=== PATIENT | female | born 1960 | race Caucasian/White ===

== ENCOUNTER 2020-06-04 21:46 | Emergency (ER) | payer OTHER ==
--- NOTE | 2020-06-04 22:21 | EDM.PDOC ---
ED HPI GENERAL MEDICAL PROBLEM - General Chief Complaint: Lower Extremity Injury/Pain Stated Complaint: RECENT LT FOOT SURGERY, POSSIBLE INFECTION Time Seen by Provider: 06/04/20 21:48 Source of Information: Reports: Patient History Limitations: Reports: No Limitations - History of Present Illness INITIAL COMMENTS - FREE TEXT/NARRATIVE: 59-year-old female past medical history left foot bunion surgery 1 week ago presents for concern for infection. Patient this morning began to note redness, swelling, burning pain to the surgical site. She denies any fevers, nausea, vomiting. She has not been on antibiotics after the operation. L foot Pain Score (Numeric/FACES): 2 - Related Data Allergies Allergy/AdvReac Type Severity Reaction Status Date / Time No Known Allergies Allergy Verified 06/04/20 21:59 Home Meds: Home Meds cycloSPORINE [Restasis] 1 drop EYEBOTH ASDIRECTED PRN 02/23/16 [History] Clindamycin HCl 450 mg PO TID 10 Days #90 capsule 06/04/20 [Rx] Hydrocodone/Acetaminophen [Hydrocodone-Acetamin 5-325 mg] 1 tab PO Q6HR PRN 06/04/20 [History] Non-Formulary Medication [NF Drug] 06/04/20 [History] Omeprazole 20 mg PO DAILY 06/04/20 [History] Past Medical History Cardiovascular History: Reports: Other (See Below) Other Cardiovascular History: pearl valve prolapse Gastrointestinal History: Reports: Hemorrhoids, Other (See Below) Other Gastrointestinal History: occasional heartburn Genitourinary History: Reports: UTI, Recurrent [employer]ARR[employer] 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: Musculoskeletal History: Reports: Osteoarthritis Other Musculoskeletal History: L bunion sx Endocrine/Metabolic History: Reports: Obesity/BMI 30+ - Infectious Disease History Infectious Disease History: Reports: Chicken Pox - Past Surgical History Head Surgeries/Procedures: Reports: None GI Surgical History: Reports: Appendectomy Female Surgical History: Reports: Section, Hysterectomy, Salpingo-Oophorectomy, Tubal Ligation Social & Family History - Family History Family Medical History: No Pertinent Family History - Caffeine Use Caffeine Use: Reports: Tea - Recreational Drug Use Recreational Drug Use: No Review of Systems - Review of Systems Review Of Systems: Comprehensive ROS is negative, except as noted in HPI. ED EXAM, GENERAL - Physical Exam Exam: See Below Exam Limited By: No Limitations General Appearance: Alert, WD/WN, No Apparent Distress Throat/Mouth: Normal Voice, No Airway Compromise Head: Atraumatic, Normocephalic Neck: Normal Inspection Respiratory/Chest: No Respiratory Distress, No Accessory Muscle Use Cardiovascular: Normal Peripheral Pulses, Regular Rate, Rhythm Extremities: Other (erythema and swelling of L foot consistent with cellulitis) Psychiatric: Normal Affect, Normal Mood Skin Exam: Warm, Dry, Intact, Normal Color Course - Vital Signs Last Recorded V/S: Last Vital Signs Temp 97.8 F 06/04/20 22:02 Pulse 79 06/04/20 23:36 Resp 16 06/04/20 23:36 BP 111/53 L 06/04/20 23:36 Pulse Ox 98 06/04/20 23:36 - Orders/Labs/Meds Orders: Active Orders 24 hr Category Date Time Status Sodium Chloride 0.9% [Saline Flush] Med 06/04/20 22:25 Active 10 ml FLUSH ASDIRECTED PRN Sodium Chloride 0.9% [Saline Flush] Med 06/04/20 22:25 Active 2.5 ml FLUSH ASDIRECTED PRN Saline Lock Insert [OM.PC] Stat Oth 06/04/20 22:25 Ordered Medication Orders Sodium Chloride (Sodium Chloride 0.9% 10 Ml Syringe) 10 ml FLUSH ASDIRECTED PRN PRN Reason: Keep Vein Open Last Admin: 06/04/20 22:44 Dose: 10 ml Documented by: ANÍBAL Sodium Chloride (Sodium Chloride 0.9% 2.5 Ml Syringe) 2.5 ml FLUSH ASDIRECTED PRN PRN Reason: Keep Vein Open Last Admin: 06/04/20 22:44 Dose: 2.5 ml Documented by: ANÍBAL Labs: Laboratory Tests 06/04/20 06/04/20 Range/Units 22:10 22:10 WBC 8.73 (4.0-11.0) K/uL RBC 4.35 (4.30-5.90) M/uL Hgb 13.4 (12.0-16.0) g/dL Hct 40.7 (36.0-46.0) % MCV 93.6 (80.0-98.0) fL MCH 30.8 (27.0-32.0) pg MCHC 32.9 (31.0-37.0) g/dL RDW Std Deviation 42.8 (28.0-62.0) fl RDW Coeff of Ian 13 (11.0-15.0) % Plt Count 274 (150-400) K/uL MPV 10.60 (7.40-12.00) fL Neut % (Auto) 56.1 (48.0-80.0) % Lymph % (Auto) 36.1 (16.0-40.0) % [place] % (Auto) 6.0 (0.0-15.0) % Eos % (Auto) 1.6 (0.0-7.0) % Baso % (Auto) 0.2 (0.0-1.5) % Neut # (Auto) 4.9 (1.4-5.7) K/uL Lymph # (Auto) 3.2 H (0.6-2.4) K/uL [place] # (Auto) 0.5 (0.0-0.8) K/uL Eos # (Auto) 0.1 (0.0-0.7) K/uL Baso # (Auto) 0.0 (0.0-0.1) K/uL Nucleated RBC % 0.0 /100WBC Nucleated RBCs # 0 K/uL Sodium 143 (136-145) mmol/L Potassium 4.0 (3.5-5.1) mmol/L Chloride 105 (98-107) mmol/L Carbon Dioxide 29.5 (21.0-32.0) mmol/L BUN 21 H (7.0-18.0) mg/dL Creatinine 1.2 H (0.6-1.0) mg/dL Est Cr Clr Drug Dosing 48.42 mL/min Estimated GFR (MDRD) 46.3 ml/min Glucose 123 H (74-106) mg/dL Calcium 8.7 (8.5-10.1) mg/dL Total Bilirubin 0.2 (0.2-1.0) mg/dL AST 12 L (15-37) IU/L ALT 28 (14-63) IU/L Alkaline Phosphatase 69 (46-116) U/L Total Protein 7.2 (6.4-8.2) g/dL Albumin 3.3 L (3.4-5.0) g/dL Globulin 3.9 (2.6-4.0) g/dL Albumin/Globulin Ratio 0.9 (0.9-1.6) Meds: Medications Generic Name Dose Route Start Last Admin Trade Name Freq PRN Reason Stop Dose Admin Sodium Chloride 10 ml 06/04/20 22:25 06/04/20 22:44 Sodium Chloride 0.9% 10 Ml Syringe FLUSH 10 ml ASDIRECTED PRN Administration Keep Vein Open Sodium Chloride 2.5 ml 06/04/20 22:25 06/04/20 22:44 Sodium Chloride 0.9% 2.5 Ml Syringe FLUSH 2.5 ml ASDIRECTED PRN Administration Keep Vein Open Discontinued Medications Generic Name Dose Route Start Last Admin Trade Name Freq PRN Reason Stop Dose Admin Clindamycin Phosphate 600 mg/ 50 mls @ 100 mls/hr 06/04/20 22:25 06/04/20 22:42 Premix IV 06/04/20 22:54 100 mls/hr ONETIME ONE Administration - Re-Assessments/Exams Free Text/Narrative Re-Assessment/Exam: 06/04/20 22:36 We will get labs, will get x-ray to ensure no gas in soft tissue, will give 1 dose of clindamycin in emergency department. Anticipate discharge with p.o. antibiotics and close follow-up. 06/04/20 23:18 Labs are unremarkable. Waiting on x-ray results. Area of cellulitis has been marked with a skin marker. 06/04/20 23:52 X-ray imaging is unremarkable aside from soft tissue swelling consistent with cellulitis Will d/c with rx of clindamycin and patient instructed to return for worsening symptoms, systemic symptoms. Urged to call her surgeon for f/u sooner than scheduled appointment on 06/14. Departure - Departure Time of Disposition: 23:53 Disposition: Home, Self-Care 01 Condition: Good Clinical Impression: Soft tissue infection of foot - Discharge Information Prescriptions: Clindamycin HCl 450 mg PO TID 10 Days #90 capsule Instructions: Cellulitis, Adult Referrals: Angeles Ramirez NP [Primary Care Provider] - Forms: ED Department Discharge Additional Instructions: If the area of redness is spreading beyond the skin marker after 2 days or if you develop fever or worsening pain you should come back to the emergency department. You need to follow-up with the surgeon that did the surgery. Call them on Saturday and try to be seen early this week. The following information is given to patients seen in the emergency department who are being discharged to home. This information is to outline your options for follow-up care. We provide all patients seen in our emergency department with a follow-up referral. The need for follow-up, as well as the timing and circumstances, are variable depending upon the specifics of your emergency department visit. If you don't have a primary care physician on staff, we will provide you with a referral. We always advise you to contact your personal physician following an emergency department visit to inform them of the circumstance of the visit and for follow-up with them and/or the need for any referrals to a consulting specialist. The emergency department will also refer you to a specialist when appropriate. This referral assures that you have the opportunity for follow-up care with a specialist. All of these measure are taken in an effort to provide you with optimal care, which includes your follow-up. Under all circumstances we always encourage you to contact your private physician who remains a resource for coordinating your care. When calling for follow-up care, please make the office aware that this follow-up is from your recent emergency room visit. If for any reason you are refused follow-up, please contact the [facility] at and asked to speak to the emergency department charge nurse. Please follow up with your primary care physician. If you do not have a primary care physician, see below: [facility] [address] [place] [id number] [facility] [address] [place] [address] [facility] [address], [place] [address] Sepsis Event Note (ED) - Evaluation Sepsis Screening Result: No Definite Risk - Focused Exam Vital Signs: Vital Signs Temp Pulse Resp BP Pulse Ox 06/04/20 23:36 79 16 111/53 L 98 06/04/20 22:02 97.8 F 85 18 130/76 97 - My Orders Last 24 Hours: My Active Orders 06/04/20 22:25 Sodium Chloride 0.9% [Saline Flush] 10 ml FLUSH ASDIRECTED PRN Sodium Chloride 0.9% [Saline Flush] 2.5 ml FLUSH ASDIRECTED PRN Saline Lock Insert [OM.PC] Stat - Assessment/Plan Last 24 Hours: My Active Orders 06/04/20 22:25 Sodium Chloride 0.9% [Saline Flush] 10 ml FLUSH ASDIRECTED PRN Sodium Chloride 0.9% [Saline Flush] 2.5 ml FLUSH ASDIRECTED PRN Saline Lock Insert [OM.PC] Stat
[2020-06-04] MEDS ORDERED: Sodium Chloride 0.9% 2.5 ML Syringe FLUSH PRN (22:25)
[2020-06-04] MEDS ORDERED: Clindamycin Phosphate in D5W 600 MG in Premix Bag 1 BAG IV ONE ×2 (22:25)
[2020-06-04] MEDS ORDERED: Sodium Chloride 0.9% 10 ML Syringe FLUSH PRN (22:25)
[2020-06-04 23:04] LABS: CARBON DIOXIDE,CO2 29.5 mmol/L (21.0-32.0)
--- NOTE | 2020-06-04 23:44 | CR ---
Indication: Pain and swelling, rule out soft tissue gas Technique: Three views of the left foot Comparison: None Findings/Impression: Soft tissue edema involving the dorsal forefoot. No underlying subcutaneous emphysema. 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 Fixation hardware present in the 1st metatarsal and 1st proximal phalanx. No evidence of acute fracture or osseous erosion. Dictated by Chandler Engle MD @ Jun 04 2020 11:40PM Signed by Dr. Chandler Engle @ Jun 04 2020 11:43PM
[2020-06-04] MEDS ORDERED: Clindamycin HCl 150 MG Cap PO STA (23:55)
== END 2020-06-05 00:30 | disposition home or self-care (01) ==
LOC: MW.ED 21:46
DX: L08.9 Local infection of the skin and subcutaneous tissue, unspecified (principal); E66.9 Obesity, unspecified; Z68.30 Body mass index [BMI] 30.0-30.9, adult; Z98.890 Other specified postprocedural states; Z79.899 Other long term (current) drug therapy
CPT/HCPCS: 36415; 73630; 80053; 85025; 96365; 99284; A9270; J3490

== ENCOUNTER 2020-12-13 06:17 | Observation (INO) | payer OTHER ==
[2020-12-13] MEDS ORDERED: Nitroglycerin 0.4 MG Tab.SL SL ONE (06:51)
[2020-12-13] MEDS ORDERED: Alum Hydrox/Mag Hydrox/Simeth 15 ML, Lidocaine 2% 5 ML PO ONE ×2 (06:51)
[2020-12-13] MEDS ORDERED: Aspirin 81 MG Tab.Chew PO STA (06:51)
--- NOTE | 2020-12-13 06:58 | EDM.PDOC ---
ED HPI GENERAL MEDICAL PROBLEM - General Chief Complaint: Cardiovascular Problem Stated Complaint: CHEST PAIN Time Seen by Provider: 12/13/20 06:35 Source of Information: Reports: Patient - History of Present Illness INITIAL COMMENTS - FREE TEXT/NARRATIVE: 6:50am. Pt medical screening/stability exam prior to oncoming provider who will care for patient. Pt states here for chest pressure/tightness/burning. vital stable. EKG without stemi. initial orders placed. 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: Musculoskeletal History: Reports: Osteoarthritis Other Musculoskeletal History: L bunion sx Endocrine/Metabolic History: Reports: Obesity/BMI 30+ - Infectious Disease History Infectious Disease History: Reports: Chicken Pox - Past Surgical History Head Surgeries/Procedures: Reports: None GI Surgical History: Reports: Appendectomy Female Surgical History: Reports: Section, Hysterectomy, Salpingo- Oophorectomy, Tubal Ligation Social & Family History - Family History Family Medical History: No Pertinent Family History - Caffeine Use Caffeine Use: Reports: Tea ED ROS GENERAL - Review of Systems Review Of Systems: See Below ED EXAM, GENERAL - Physical Exam Exam: See Below Course - Vital Signs Last Recorded V/S: Last Vital Signs Temp 37.3 C 12/14/20 00:00 Pulse 83 12/14/20 00:00 Resp 19 12/14/20 00:00 BP 99/65 12/14/20 00:00 Pulse Ox 97 12/14/20 00:00 - Orders/Labs/Meds Orders: Medication Orders Acetaminophen (Acetaminophen 650 Mg Supp) 650 mg RECTAL Q4H PRN PRN Reason: Pain (mild 1-3) Last Admin: 12/13/20 21:07 Dose: 650 mg Documented by: Admin: 12/13/20 16:48 Dose: 650 mg Documented by: HERMRAC Ondansetron HCl (Ondansetron 4 Mg/2 Ml Sdv) 4 mg IVPUSH Q4H PRN PRN Reason: Nausea Cyclosporine [ (Restasis] 1 Each) 1 each EYEBOTH BID PRN PRN Reason: Dry Eyes Sodium Chloride (Sodium Chloride 0.9% 2.5 Ml Syringe) 2.5 ml FLUSH ASDIRECTED PRN PRN Reason: Keep Vein Open Sucralfate (Sucralfate Suspension 1 Gm/10 Ml Cup) 1 gm PO QIDACANDBED TRACY Last Admin: 12/13/20 21:02 Dose: 1 gm Documented by: Admin: 12/13/20 17:10 Dose: 1 gm Documented by: Admin: 12/13/20 12:31 Dose: 1 gm Documented by: INGRID Labs: Laboratory Tests 12/13/20 12/13/20 12/13/20 Range/Units 06:35 06:35 06:35 WBC 5.75 (4.0-11.0) K/uL RBC 4.60 (4.30-5.90) M/uL Hgb 14.2 (12.0-16.0) g/dL Hct 42.1 (36.0-46.0) % MCV 91.5 (80.0-98.0) fL MCH 30.9 (27.0-32.0) pg MCHC 33.7 (31.0-37.0) g/dL RDW Std Deviation 42.7 (28.0-62.0) fl RDW Coeff of Ian 13 (11.0-15.0) % Plt Count 190 (150-400) K/uL MPV 10.80 (7.40-12.00) fL Neut % (Auto) 71.6 (48.0-80.0) % Lymph % (Auto) 15.0 L (16.0-40.0) % [place] % (Auto) 12.3 (0.0-15.0) % Eos % (Auto) 0.9 (0.0-7.0) % Baso % (Auto) 0.2 (0.0-1.5) % Neut # (Auto) 4.1 (1.4-5.7) K/uL Lymph # (Auto) 0.9 (0.6-2.4) K/uL [place] # (Auto) 0.7 (0.0-0.8) K/uL Eos # (Auto) 0.1 (0.0-0.7) K/uL Baso # (Auto) 0.0 (0.0-0.1) K/uL Nucleated RBC % 0.0 /100WBC Nucleated RBCs # 0 K/uL Sodium 140 (136-145) mmol/L Potassium 4.1 (3.5-5.1) mmol/L Chloride 103 (98-107) mmol/L Carbon Dioxide 28.0 (21.0-32.0) mmol/L BUN 17 (7.0-18.0) mg/dL Creatinine 1.3 H (0.6-1.0) mg/dL Est Cr Clr Drug Dosing 44.16 mL/min Estimated GFR (MDRD) 42.1 ml/min Glucose 106 (74-106) mg/dL Hemoglobin A1c 5.8 (4.5 - 6.2) % Calcium 8.5 (8.5-10.1) mg/dL Total Bilirubin 0.3 (0.2-1.0) mg/dL AST 14 L (15-37) IU/L ALT 24 (14-63) IU/L Alkaline Phosphatase 79 (46-116) U/L Troponin I < 0.050 (0.000-0.056) ng/mL Total Protein 7.3 (6.4-8.2) g/dL Albumin 3.7 (3.4-5.0) g/dL Globulin 3.6 (2.6-4.0) g/dL Albumin/Globulin Ratio 1.0 (0.9-1.6) Triglycerides (0-200) mg/dL Cholesterol (50-200) mg/dL LDL Cholesterol, Calc (60-180) mg/dL VLDL Cholesterol (5-55) mg/dL HDL Cholesterol (40-60) mg/dL Cholesterol/HDL Ratio (3.3-6.0) TSH, Ultra Sensitive (0.36-3.74) uIU/mL SARS-CoV-2 RNA (JAJA) (NEGATIVE) 12/13/20 12/13/20 12/13/20 Range/Units 08:32 09:41 09:41 WBC (4.0-11.0) K/uL RBC (4.30-5.90) M/uL Hgb (12.0-16.0) g/dL Hct (36.0-46.0) % MCV (80.0-98.0) fL MCH (27.0-32.0) pg MCHC (31.0-37.0) g/dL RDW Std Deviation (28.0-62.0) fl RDW Coeff of Ian (11.0-15.0) % Plt Count (150-400) K/uL MPV (7.40-12.00) fL Neut % (Auto) (48.0-80.0) % Lymph % (Auto) (16.0-40.0) % [place] % (Auto) (0.0-15.0) % Eos % (Auto) (0.0-7.0) % Baso % (Auto) (0.0-1.5) % Neut # (Auto) (1.4-5.7) K/uL Lymph # (Auto) (0.6-2.4) K/uL [place] # (Auto) (0.0-0.8) K/uL Eos # (Auto) (0.0-0.7) K/uL Baso # (Auto) (0.0-0.1) K/uL Nucleated RBC % /100WBC Nucleated RBCs # K/uL Sodium (136-145) mmol/L Potassium (3.5-5.1) mmol/L Chloride (98-107) mmol/L Carbon Dioxide (21.0-32.0) mmol/L BUN (7.0-18.0) mg/dL Creatinine (0.6-1.0) mg/dL Est Cr Clr Drug Dosing mL/min Estimated GFR (MDRD) ml/min Glucose (74-106) mg/dL Hemoglobin A1c (4.5 - 6.2) % Calcium (8.5-10.1) mg/dL Total Bilirubin (0.2-1.0) mg/dL AST (15-37) IU/L ALT (14-63) IU/L Alkaline Phosphatase (46-116) U/L Troponin I < 0.050 (0.000-0.056) ng/mL Total Protein (6.4-8.2) g/dL Albumin (3.4-5.0) g/dL Globulin (2.6-4.0) g/dL Albumin/Globulin Ratio (0.9-1.6) Triglycerides 58 (0-200) mg/dL Cholesterol 119 (50-200) mg/dL LDL Cholesterol, Calc 51 L (60-180) mg/dL VLDL Cholesterol 11 (5-55) mg/dL HDL Cholesterol 56 (40-60) mg/dL Cholesterol/HDL Ratio 2.1 L (3.3-6.0) TSH, Ultra Sensitive 1.12 (0.36-3.74) uIU/mL SARS-CoV-2 RNA (JAJA) NEGATIVE (NEGATIVE) Meds: Medications Generic Name Dose Route Start Last Admin Trade Name Swathi PRN Reason Stop Dose Admin Acetaminophen 650 mg 12/13/20 12:00 12/13/20 21:07 Acetaminophen 650 Mg Supp RECTAL 650 mg Q4H PRN Administration Pain (mild 1-3) Ondansetron HCl 4 mg 12/13/20 12:00 Ondansetron 4 Mg/2 Ml Sdv IVPUSH Q4H PRN Nausea Cyclosporine [ 1 each 12/13/20 14:12 Restasis] 1 Each EYEBOTH BID PRN Dry Eyes Sodium Chloride 2.5 ml 12/13/20 12:00 Sodium Chloride 0.9% 2.5 Ml Syringe FLUSH ASDIRECTED PRN Keep Vein Open Sucralfate 1 gm 12/13/20 12:10 12/13/20 21:02 Sucralfate Suspension 1 Gm/10 Ml Cup PO 1 gm QIDACANDBED TRACY Administration Discontinued Medications Generic Name Dose Route Start Last Admin Trade Name Swathi PRN Reason Stop Dose Admin Acetaminophen 650 mg 12/13/20 11:12 12/13/20 11:15 Acetaminophen 325 Mg Tab PO 12/13/20 11:13 650 mg NOW ONE Administration Acetaminophen Confirm 12/13/20 11:14 12/13/20 11:18 Acetaminophen 325 Mg Tab Administered 12/13/20 11:15 Not Given Dose 650 mg .ROUTE .STK-MED ONE Aspirin 162 mg 12/13/20 06:51 12/13/20 07:00 Aspirin 81 Mg Tab.Chew PO 12/13/20 06:52 162 mg NOW STA Administration Al Hydroxide/Mg Hydroxide 15 0 ml 12/13/20 06:51 12/13/20 07:00 ml/ Lidocaine HCl 5 ml PO 12/13/20 06:52 20 each ONETIME ONE Administration Pantoprazole Sodium 40 mg/ 10 mls @ 300 mls/hr 12/13/20 12:10 12/13/20 12:32 Sodium Chloride IV 12/13/20 12:11 300 mls/hr NOW ONE Administration Nitroglycerin 0.4 mg 12/13/20 06:51 12/13/20 07:00 Nitroglycerin 0.4 Mg Tab.Sl SL 12/13/20 06:52 0.4 mg ONETIME ONE Administration Departure - Departure Time of Disposition: 00:00 Disposition: Refer to Observation Clinical Impression: Chest pain Sepsis Event Note (ED) - Evaluation Sepsis Screening Result: No Definite Risk
[2020-12-13 07:07] LABS: BLOOD UREA NITROGEN,BUN 17 mg/dL (7.0-18.0); CHLORIDE,CL 103 mmol/L (98-107); GLUCOSE RANDOM 106 mg/dL (74-106); POTASSIUM,K 4.1 mmol/L (3.5-5.1); SODIUM,NA 140 mmol/L (136-145)
--- NOTE | 2020-12-13 07:28 | EDM.PDOC ---
ED HPI GENERAL MEDICAL PROBLEM - General Chief Complaint: Cardiovascular Problem Stated Complaint: CHEST PAIN Time Seen by Provider: 12/13/20 07:11 Source of Information: Reports: Patient History Limitations: Reports: No Limitations - History of Present Illness INITIAL COMMENTS - FREE TEXT/NARRATIVE: Patient is a 60-year-old female with history of mitral valve prolapse presents today for left-sided chest pain. States the pain started last night has been currently Willy and not coming and going. It is not made the pain better or worse it does radiate to her back. She denies any cough fever chills but does have some slight shortness of breath. She denies any other symptoms. - Related Data Allergies Allergy/AdvReac Type Severity Reaction Status Date / Time No Known Allergies Allergy Verified 12/13/20 06:51 Home Meds: Home Meds cycloSPORINE [Restasis] 1 drop EYEBOTH ASDIRECTED PRN 02/23/16 [History] Clindamycin HCl 450 mg PO TID 10 Days #90 capsule 06/04/20 [Rx] Hydrocodone/Acetaminophen [Hydrocodone-Acetamin 5-325 mg] 1 tab PO Q6HR PRN 06/04/20 [History] Non-Formulary Medication [NF Drug] 06/04/20 [History] Omeprazole 20 mg PO DAILY 06/04/20 [History] Past Medical History Cardiovascular History: Reports: Other (See Below) Other Cardiovascular History: pearl valve prolapse Gastrointestinal History: Reports: Hemorrhoids, Other (See Below) Other Gastrointestinal History: occasional heartburn Genitourinary History: Reports: UTI, Recurrent 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: Musculoskeletal History: Reports: Osteoarthritis Other Musculoskeletal History: L bunion sx Endocrine/Metabolic History: Reports: Obesity/BMI 30+ - Infectious Disease History Infectious Disease History: Reports: Chicken Pox - Past Surgical History Head Surgeries/Procedures: Reports: None GI Surgical History: Reports: Appendectomy Female Surgical History: Reports: Section, Hysterectomy, Salpingo- Oophorectomy, Tubal Ligation Social & Family History - Family History Family Medical History: No Pertinent Family History - Tobacco Use Second Hand Smoke Exposure: No - Caffeine Use Caffeine Use: Reports: None - Recreational Drug Use Recreational Drug Use: No ED ROS GENERAL - Review of Systems Review Of Systems: See Below Constitutional: Reports: No Symptoms HEENT: Reports: No Symptoms Respiratory: Reports: No Symptoms Cardiovascular: Reports: Chest Pain Endocrine: Reports: No Symptoms GI/Abdominal: Reports: No Symptoms : Reports: No Symptoms Musculoskeletal: Reports: No Symptoms Skin: Reports: No Symptoms Neurological: Reports: No Symptoms Psychiatric: Reports: No Symptoms Hematologic/Lymphatic: Reports: No Symptoms Immunologic: Reports: No Symptoms ED EXAM, GENERAL - Physical Exam Exam: See Below Exam Limited By: No Limitations General Appearance: Alert, WD/WN, No Apparent Distress Eye Exam: Bilateral Eye: EOMI, PERRL Head: Atraumatic, Normocephalic Neck: Normal Inspection, Supple, Non-Tender Respiratory/Chest: No Respiratory Distress, Lungs Clear, Normal Breath Sounds Cardiovascular: Normal Peripheral Pulses, Regular Rate, Rhythm GI/Abdominal: Normal Bowel Sounds, Soft, Non-Tender Extremities: Normal Inspection Neurological: Alert, Oriented, CN II-XII Intact Course - Vital Signs Last Recorded V/S: Last Vital Signs Temp 98.1 F 12/13/20 10:19 Pulse 100 12/13/20 10:19 Resp 18 12/13/20 10:19 BP 120/70 12/13/20 10:19 Pulse Ox 98 12/13/20 10:19 - Orders/Labs/Meds Orders: Active Orders 24 hr Category Date Time Status Patient Status [ADT] Routine ADT 12/13/20 10:49 Ordered Labs: Laboratory Tests 12/13/20 12/13/20 12/13/20 Range/Units 06:35 06:35 08:32 WBC 5.75 (4.0-11.0) K/uL RBC 4.60 (4.30-5.90) M/uL Hgb 14.2 (12.0-16.0) g/dL Hct 42.1 (36.0-46.0) % MCV 91.5 (80.0-98.0) fL MCH 30.9 (27.0-32.0) pg MCHC 33.7 (31.0-37.0) g/dL RDW Std Deviation 42.7 (28.0-62.0) fl RDW Coeff of Ian 13 (11.0-15.0) % Plt Count 190 (150-400) K/uL MPV 10.80 (7.40-12.00) fL Neut % (Auto) 71.6 (48.0-80.0) % Lymph % (Auto) 15.0 L (16.0-40.0) % [place] % (Auto) 12.3 (0.0-15.0) % Eos % (Auto) 0.9 (0.0-7.0) % Baso % (Auto) 0.2 (0.0-1.5) % Neut # (Auto) 4.1 (1.4-5.7) K/uL Lymph # (Auto) 0.9 (0.6-2.4) K/uL [place] # (Auto) 0.7 (0.0-0.8) K/uL Eos # (Auto) 0.1 (0.0-0.7) K/uL Baso # (Auto) 0.0 (0.0-0.1) K/uL Nucleated RBC % 0.0 /100WBC Nucleated RBCs # 0 K/uL Sodium 140 (136-145) mmol/L Potassium 4.1 (3.5-5.1) mmol/L Chloride 103 (98-107) mmol/L Carbon Dioxide 28.0 (21.0-32.0) mmol/L BUN 17 (7.0-18.0) mg/dL Creatinine 1.3 H (0.6-1.0) mg/dL Est Cr Clr Drug Dosing 44.16 mL/min Estimated GFR (MDRD) 42.1 ml/min Glucose 106 (74-106) mg/dL Calcium 8.5 (8.5-10.1) mg/dL Total Bilirubin 0.3 (0.2-1.0) mg/dL AST 14 L (15-37) IU/L ALT 24 (14-63) IU/L Alkaline Phosphatase 79 (46-116) U/L Troponin I < 0.050 (0.000-0.056) ng/mL Total Protein 7.3 (6.4-8.2) g/dL Albumin 3.7 (3.4-5.0) g/dL Globulin 3.6 (2.6-4.0) g/dL Albumin/Globulin Ratio 1.0 (0.9-1.6) SARS-CoV-2 RNA (JAJA) NEGATIVE (NEGATIVE) 12/13/20 Range/Units 09:41 WBC (4.0-11.0) K/uL RBC (4.30-5.90) M/uL Hgb (12.0-16.0) g/dL Hct (36.0-46.0) % MCV (80.0-98.0) fL MCH (27.0-32.0) pg MCHC (31.0-37.0) g/dL RDW Std Deviation (28.0-62.0) fl RDW Coeff of Ian (11.0-15.0) % Plt Count (150-400) K/uL MPV (7.40-12.00) fL Neut % (Auto) (48.0-80.0) % Lymph % (Auto) (16.0-40.0) % [place] % (Auto) (0.0-15.0) % Eos % (Auto) (0.0-7.0) % Baso % (Auto) (0.0-1.5) % Neut # (Auto) (1.4-5.7) K/uL Lymph # (Auto) (0.6-2.4) K/uL [place]ham # (Auto) (0.0-0.8) K/uL Eos # (Auto) (0.0-0.7) K/uL Baso # (Auto) (0.0-0.1) K/uL Nucleated RBC % /100WBC Nucleated RBCs # K/uL Sodium (136-145) mmol/L Potassium (3.5-5.1) mmol/L Chloride (98-107) mmol/L Carbon Dioxide (21.0-32.0) mmol/L BUN (7.0-18.0) mg/dL Creatinine (0.6-1.0) mg/dL Est Cr Clr Drug Dosing mL/min Estimated GFR (MDRD) ml/min Glucose (74-106) mg/dL Calcium (8.5-10.1) mg/dL Total Bilirubin (0.2-1.0) mg/dL AST (15-37) IU/L ALT (14-63) IU/L Alkaline Phosphatase (46-116) U/L Troponin I < 0.050 (0.000-0.056) ng/mL Total Protein (6.4-8.2) g/dL Albumin (3.4-5.0) g/dL Globulin (2.6-4.0) g/dL Albumin/Globulin Ratio (0.9-1.6) SARS-CoV-2 RNA (JAJA) (NEGATIVE) Meds: Medications Discontinued Medications Generic Name Dose Route Start Last Admin Trade Name Swathi PRN Reason Stop Dose Admin Aspirin 162 mg 12/13/20 06:51 12/13/20 07:00 Aspirin 81 Mg Tab.Chew PO 12/13/20 06:52 162 mg NOW STA Administration Al Hydroxide/Mg Hydroxide 15 0 ml 12/13/20 06:51 12/13/20 07:00 ml/ Lidocaine HCl 5 ml PO 12/13/20 06:52 20 each ONETIME ONE Administration Nitroglycerin 0.4 mg 12/13/20 06:51 12/13/20 07:00 Nitroglycerin 0.4 Mg Tab.Sl SL 12/13/20 06:52 0.4 mg ONETIME ONE Administration - Re-Assessments/Exams Free Text/Narrative Re-Assessment/Exam: 12/13/20 10:50 Patient tropes negative x2. Patient will be admitted to the hospital for trending troponins. Departure - Departure Time of Disposition: 10:50 Disposition: Refer to Observation Condition: Good Clinical Impression: Chest pain Referrals: PCP,None [Primary Care Provider] - Forms: ED Department Discharge Sepsis Event Note (ED) - Evaluation Sepsis Screening Result: No Definite Risk - Focused Exam Vital Signs: Vital Signs Temp Pulse Resp BP BP Pulse Ox 12/13/20 10:19 98.1 F 100 18 120/70 98 12/13/20 09:48 91 18 110/57 L 97 12/13/20 08:49 90 18 124/74 98 12/13/20 08:20 92 18 113/64 98 12/13/20 07:55 88 18 118/73 98 12/13/20 07:23 98.2 F 94 18 111/65 98 12/13/20 07:00 143/96 H 12/13/20 06:48 97 F 101 H 20 131/71 99 - My Orders Last 24 Hours: My Active Orders 12/13/20 10:49 Patient Status [ADT] Routine - Assessment/Plan Last 24 Hours: My Active Orders 12/13/20 10:49 Patient Status [ADT] Routine Plan: Patient is a 60-year-old female who presents today for left-sided chest pain. Patient has a heart score of two. Will obtain two sets and likely discharge follow-up with cardiology as outpatient.
--- NOTE | 2020-12-13 07:49 | CR ---
INDICATION: Chest pain. TECHNIQUE: Chest 1 view. COMPARISON: None. FINDINGS: No focal consolidation, pleural effusion, or pneumothorax. There are two small tubular densities in the right lower lung. Mild left basilar atelectasis. Normal heart size and pulmonary vascularity. The bones are unremarkable. IMPRESSION: 1. No acute cardiopulmonary findings. 2. Two small tubular densities in the right lower lung could possibly represent calcified pleural plaques but are indeterminate. These could be further evaluated with CT of the chest. Dictated by Susie Alex MD @ 12/13/2020 7:48:21 AM (Electronically Signed)
[2020-12-13] MEDS ORDERED: Acetaminophen 325 MG Tab PO ONE (11:12)
[2020-12-13] MEDS ORDERED: Acetaminophen 325 MG Tab ONE (11:14)
[2020-12-13] MEDS ORDERED: Ondansetron 4 MG/2 ML SDV IVPUSH PRN (12:00)
[2020-12-13] MEDS ORDERED: Sodium Chloride 0.9% 2.5 ML Syringe FLUSH PRN (12:00)
[2020-12-13] MEDS ORDERED: Pantoprazole 40 MG in Sodium Chloride 0.9% 10 ML IV ONE (12:10)
--- NOTE | 2020-12-13 12:20 | PCM.HP.2 ---
<Esme Marshall M - Last Filed: 12/13/20 14:05> H&P History of Present Illness - General Date of Service: 12/13/20 Admit Problem/Dx: Admission Diagnosis/Problem Admission Diagnosis/Problem Chest pain Source of Information: Patient History Limitations: Reports: No Limitations - History of Present Illness Initial Comments - Free Text/Narative: This 60-year-old female with past medical history of mitral valve prolapse and Sjogren's presented to the ER with complaints of left-sided chest pain that is burning in nature and extends up to her throat. She reports that she feels this may be related to her gastric ulcer in which she takes omeprazole for. She was concerned enough though to be evaluated in the ER. She denies any associated symptoms such as nausea vomiting radiation of the pain diaphoresis or shortness of breath. She does report mild shortness of breath with activity which is at baseline. She said nothing so far has helped the pain including nitro and GI cocktail. Nothing makes the pain worse such as taking a deep breath ambulation or activity. She does report eating does make it worse. She denies any recent fevers chills headache neck pain or abdominal pain. Denies any constipation diarrhea or black or bloody bowel movements. She denies any shortness of breath cough or palpitations. She denies any focal neurological deficit. She denies any dysuria. She reports she does not have any family history of CAD but is unaware of her father's side of the family. She denies any tobacco use no recreational drug use and no alcohol use. In the ER no leukocytosis noted hemoglobin 14.2. Hematocrit 42.1. Platelets 190,000. Sodium 140 potassium 4.1. BUN 17 creatinine 1.3 glucose 106 AST 14 troponin x2 negative. Covid swab negative. EKG sinus rhythm with no ST changes. Chest x-ray negative for acute cardiopulmonary process. Patient was treated with aspirin in the ER along with nitro which had no improvement in pain. GI cocktail and Tylenol for headache brought on by nitro use. Patient is feeling okay feels a little bit nauseated from heartburn within her throat. She will be admitted for atypical chest pain rule out ACS. Patient does report history of mitral valve prolapse unknown cause. She denies having recent echo. - Related Data Allergies/Adverse Reactions: Allergies Allergy/AdvReac Type Severity Reaction Status Date / Time No Known Allergies Allergy Verified 12/13/20 13:41 Home Medications: Home Meds cycloSPORINE [Restasis] 1 drop EYEBOTH ASDIRECTED PRN 02/23/16 [History] Omeprazole 20 mg PO DAILY 06/04/20 [History] Past Medical History HEENT History: Reports: None Cardiovascular History: Reports: Other (See Below). Denies: Afib, Blood C lots/VTE/DVT, CAD, Hypertension Other Cardiovascular History: pearl valve prolapse Respiratory History: Reports: None. Denies: COPD, PE, Sleep Apnea Gastrointestinal History: Reports: Hemorrhoids, PUD, Other (See Below) Other Gastrointestinal History: occasional heartburn Genitourinary History: Reports: UTI, Recurrent HOUSING SPECIALIST History: Reports: Musculoskeletal History: Reports: Osteoarthritis Other Musculoskeletal History: L bunion sx Neurological History: Reports: None. Denies: CVA, TIA Psychiatric History: Reports: None Endocrine/Metabolic History: Reports: Obesity/BMI 30+, Other (See Below) (Sjogren's). Denies: Diabetes, Type II - Infectious Disease History Infectious Disease History: Reports: Chicken Pox - Past Surgical History Head Surgeries/Procedures: Reports: None HEENT Surgical History: Reports: Other (See Below) Other HEENT Surgeries/Procedures: blocked gland from neck about 15yrs ago GI Surgical History: Reports: Appendectomy Female Surgical History: Reports: Section, Hysterectomy, Salpingo-Oophorectomy, Tubal Ligation Endocrine Surgical History: Reports: None Musculoskeletal Surgical History: Reports: Other (See Below) Other Musculoskeletal Surgeries/Procedures:: bunion surgery Social & Family History - Family History Family Medical History: No Pertinent Family History Cardiac: Denies: CAD, Cardiomyopathy, Heart Murmur, [place] - Tobacco Use Tobacco Use Status *Q: Never Tobacco User Second Hand Smoke Exposure: No - Caffeine Use Caffeine Use: Reports: Tea - Alcohol Use Alcohol Use History: No - Recreational Drug Use Recreational Drug Use: No H&P Review of Systems - Review of Systems: Review Of Systems: See Below General: Denies: Fever, Chills, Malaise HEENT: Reports: Headaches (After nitro ministration improving after Tylenol.), Sore Throat (Burning in throat coming from stomach). Denies: Sinus Congestion Pulmonary: Denies: Shortness of Breath, Wheezing, Cough, Sputum Cardiovascular: Reports: Chest Pain (Left-sided nonradiating burning in sensation). Denies: Palpitations, Dyspnea on Exertion, Edema Gastrointestinal: Reports: No Symptoms. Denies: Abdominal Pain, Black Stool, Bloody Stool, Nausea, Vomiting Genitourinary: Reports: No Symptoms. Denies: Dysuria, Frequency, Burning Musculoskeletal: Reports: No Symptoms Skin: Reports: No Symptoms Psychiatric: Reports: No Symptoms Neurological: Reports: No Symptoms Hematologic/Lymphatic: Reports: No Symptoms Immunologic: Reports: No Symptoms Exam - Exam Exam: See Below - Vital Signs Vital Signs: Last Vital Signs Temp 98.1 F 12/13/20 10:19 Pulse 94 12/13/20 11:12 Resp 18 12/13/20 11:12 BP 125/74 12/13/20 11:12 Pulse Ox 98 12/13/20 11:12 Weight: 86.273 kg - Exam Quality Assessment: DVT Prophylaxis. No: Supplemental Oxygen General: Alert, Oriented, Cooperative HEENT: Conjunctiva Clear, Mucosa Moist & Hosmer, Posterior Pharynx Clear, Pupils Reactive Neck: Supple, Trachea Midline Lungs: Clear to Auscultation, Normal Respiratory Effort Cardiovascular: Regular Rate, Regular Rhythm, Normal S1, Normal S2, Other (No tenderness to palpation of chest) GI/Abdominal Exam: Normal Bowel Sounds, Soft, Non-Tender Extremities: Normal Inspection, Normal Range of Motion, Non-Tender, No Pedal Edema Neuro Extensive - Mental Status: Alert, Oriented x3 Neuro Extensive - Motor, Sensory, Reflexes: CN II-XII Intact Psychiatric: Alert, Normal Affect, Normal Mood - Patient Data Lab Results Last 24 hrs: Laboratory Results - last 24 hr 12/13/20 12/13/20 12/13/20 Range/Units 06:35 06:35 08:32 WBC 5.75 (4.0-11.0) K/uL RBC 4.60 (4.30-5.90) M/uL Hgb 14.2 (12.0-16.0) g/dL Hct 42.1 (36.0-46.0) % MCV 91.5 (80.0-98.0) fL MCH 30.9 (27.0-32.0) pg MCHC 33.7 (31.0-37.0) g/dL RDW Std Deviation 42.7 (28.0-62.0) fl RDW Coeff of Ian 13 (11.0-15.0) % Plt Count 190 (150-400) K/uL MPV 10.80 (7.40-12.00) fL Neut % (Auto) 71.6 (48.0-80.0) % Lymph % (Auto) 15.0 L (16.0-40.0) % Hubbard % (Auto) 12.3 (0.0-15.0) % Eos % (Auto) 0.9 (0.0-7.0) % Baso % (Auto) 0.2 (0.0-1.5) % Neut # (Auto) 4.1 (1.4-5.7) K/uL Lymph # (Auto) 0.9 (0.6-2.4) K/uL Hubbard # (Auto) 0.7 (0.0-0.8) K/uL Eos # (Auto) 0.1 (0.0-0.7) K/uL Baso # (Auto) 0.0 (0.0-0.1) K/uL Nucleated RBC % 0.0 /100WBC Nucleated RBCs # 0 K/uL Sodium 140 (136-145) mmol/L Potassium 4.1 (3.5-5.1) mmol/L Chloride 103 (98-107) mmol/L Carbon Dioxide 28.0 (21.0-32.0) mmol/L BUN 17 (7.0-18.0) mg/dL Creatinine 1.3 H (0.6-1.0) mg/dL Est Cr Clr Drug Dosing 44.16 mL/min Estimated GFR (MDRD) 42.1 ml/min Glucose 106 (74-106) mg/dL Calcium 8.5 (8.5-10.1) mg/dL Total Bilirubin 0.3 (0.2-1.0) mg/dL AST 14 L (15-37) IU/L ALT 24 (14-63) IU/L Alkaline Phosphatase 79 (46-116) U/L Troponin I < 0.050 (0.000-0.056) ng/mL Total Protein 7.3 (6.4-8.2) g/dL Albumin 3.7 (3.4-5.0) g/dL Globulin 3.6 (2.6-4.0) g/dL Albumin/Globulin Ratio 1.0 (0.9-1.6) SARS-CoV-2 RNA (JAJA) NEGATIVE (NEGATIVE) 12/13/20 Range/Units 09:41 WBC (4.0-11.0) K/uL RBC (4.30-5.90) M/uL Hgb (12.0-16.0) g/dL Hct (36.0-46.0) % MCV (80.0-98.0) fL MCH (27.0-32.0) pg MCHC (31.0-37.0) g/dL RDW Std Deviation (28.0-62.0) fl RDW Coeff of Ian (11.0-15.0) % Plt Count (150-400) K/uL MPV (7.40-12.00) fL Neut % (Auto) (48.0-80.0) % Lymph % (Auto) (16.0-40.0) % Hubbard % (Auto) (0.0-15.0) % Eos % (Auto) (0.0-7.0) % Baso % (Auto) (0.0-1.5) % Neut # (Auto) (1.4-5.7) K/uL Lymph # (Auto) (0.6-2.4) K/uL Hubbard # (Auto) (0.0-0.8) K/uL Eos # (Auto) (0.0-0.7) K/uL Baso # (Auto) (0.0-0.1) K/uL Nucleated RBC % /100WBC Nucleated RBCs # K/uL Sodium (136-145) mmol/L Potassium (3.5-5.1) mmol/L Chloride (98-107) mmol/L Carbon Dioxide (21.0-32.0) mmol/L BUN (7.0-18.0) mg/dL Creatinine (0.6-1.0) mg/dL Est Cr Clr Drug Dosing mL/min Estimated GFR (MDRD) ml/min Glucose (74-106) mg/dL Calcium (8.5-10.1) mg/dL Total Bilirubin (0.2-1.0) mg/dL AST (15-37) IU/L ALT (14-63) IU/L Alkaline Phosphatase (46-116) U/L Troponin I < 0.050 (0.000-0.056) ng/mL Total Protein (6.4-8.2) g/dL Albumin (3.4-5.0) g/dL Globulin (2.6-4.0) g/dL Albumin/Globulin Ratio (0.9-1.6) SARS-CoV-2 RNA (JAJA) (NEGATIVE) Result Diagrams: 12/13/20 06:35 12/13/20 06:35 Sepsis Event Note - Evaluation Sepsis Screening Result: No Definite Risk - Focused Exam Vital Signs: Vital Signs Temp Pulse Resp BP BP Pulse Ox 12/13/20 11:12 94 18 125/74 98 12/13/20 10:19 98.1 F 100 18 120/70 98 12/13/20 09:48 91 18 110/57 L 97 12/13/20 08:49 90 18 124/74 98 12/13/20 08:20 92 18 113/64 98 12/13/20 07:55 88 18 118/73 98 12/13/20 07:23 98.2 F 94 18 111/65 98 12/13/20 07:00 143/96 H 12/13/20 06:48 97 F 101 H 20 131/71 99 - Problem List (1) Atypical chest pain SNOMED Code(s): 941714163 ICD Code: R07.89 - OTHER CHEST PAIN Status: Acute Current Visit: Yes (2) Sjogren's disease SNOMED Code(s): 28110134 ICD Code: M35.00 - SICCA SYNDROME, UNSPECIFIED Status: Chronic Current Visit: Yes (3) Mitral valve prolapse SNOMED Code(s): 847563879 ICD Code: I34.1 - NONRHEUMATIC MITRAL (VALVE) PROLAPSE Status: Chronic Current Visit: Yes Problem List Initiated/Reviewed/Updated: Yes Orders Last 24hrs: Active Orders 24 hr Category Date Time Status Patient Status [ADT] Routine ADT 12/13/20 10:49 Active Antiembolic Devices [RC] PER UNIT ROUTINE Care 12/13/20 12:01 Active Intake and Output [RC] QSHIFT Care 12/13/20 12:00 Active Oxygen Therapy [RC] PRN Care 12/13/20 12:00 Active Up With Assistance [RC] ASDIRECTED Care 12/13/20 12:00 Active VTE/DVT Education [RC] PER UNIT ROUTINE Care 12/13/20 12:00 Active Vital Signs [RC] Q4H Care 12/13/20 12:00 Active Regular Diet [DIET] Diet 12/13/20 Lunch Active Echo Comp wo Cont [US] Urgent Exams 12/13/20 12:06 Ordered GLYCOSYLATED HEMOGLOBIN,HGBA1C [CHEM] Routine Lab 12/13/20 12:11 Ordered LIPID PANEL [CHEM] Routine Lab 12/13/20 12:11 Ordered TROPONIN I [CHEM] Q3H Lab 12/13/20 12:30 Ordered TROPONIN I [CHEM] Q3H Lab 12/13/20 15:30 Ordered TSH REFLEX TO FREE T4 [CHEM] Routine Lab 12/13/20 12:11 Ordered Acetaminophen [Tylenol] Med 12/13/20 12:00 Ordered 650 mg RECTAL Q4H PRN Ondansetron [Zofran] Med 12/13/20 12:00 Ordered 4 mg IVPUSH Q4H PRN Sodium Chloride 0.9% [Saline Flush] Med 12/13/20 12:00 Ordered 2.5 ml FLUSH ASDIRECTED PRN Sucralfate [Carafate] Med 12/13/20 12:10 Ordered 1 gm PO QIDACANDBED Saline Lock Insert [OM.PC] Routine Oth 12/13/20 12:00 Ordered Sequential Compression Device [OM.PC] Per Unit Routine Oth 12/13/20 12:00 Ordered Resuscitation Status Routine Resus Stat 12/13/20 12:00 Ordered Medication Orders Acetaminophen (Acetaminophen 650 Mg Supp) 650 mg RECTAL Q4H PRN PRN Reason: Pain (mild 1-3) Ondansetron HCl (Ondansetron 4 Mg/2 Ml Sdv) 4 mg IVPUSH Q4H PRN PRN Reason: Nausea Sodium Chloride (Sodium Chloride 0.9% 2.5 Ml Syringe) 2.5 ml FLUSH ASDIRECTED PRN PRN Reason: Keep Vein Open Sucralfate (Sucralfate Suspension 1 Gm/10 Ml Cup) 1 gm PO QIDACANDBED [facility] Assessment/Plan Comment:: This 60-year-old female admitted with atypical chest pain rule out ACS 1. Chest pain -Monitor on telemetry -Trend troponins x2 more -Obtain lipid panel, A1c and TSH -Due to history of mitral prolapse will obtain echo -Likely set up for outpatient stress test and follow-up with cardiology r egarding mitral valve prolapse -Patient feels this is more GERD or heartburn in nature 2. GERD/history of PUD -Start Carafate with meals and at bedtime -We will give Protonix IV now -Continue omeprazole will increase to twice daily 3. Sjogren's -Continue oral lozenges and eyedrops twice daily VTE prophylaxis: SCDs GI prophylaxis: Protonix Dispo: Likely in a.m. <Floyd Rockwell - Last Filed: 12/13/20 15:14> H&P History of Present Illness - General Admit Problem/Dx: Admission Diagnosis/Problem Admission Diagnosis/Problem Chest pain Exam - Vital Signs Vital Signs: Last Vital Signs Temp 37.7 C 12/13/20 12:17 Pulse 102 H 12/13/20 12:17 Resp 18 12/13/20 12:17 BP 128/84 12/13/20 12:17 Pulse Ox 95 12/13/20 12:17 - Patient Data Lab Results Last 24 hrs: Laboratory Results - last 24 hr 12/13/20 12/13/20 12/13/20 Range/Units 06:35 06:35 06:35 WBC 5.75 (4.0-11.0) K/uL RBC 4.60 (4.30-5.90) M/uL Hgb 14.2 (12.0-16.0) g/dL Hct 42.1 (36.0-46.0) % MCV 91.5 (80.0-98.0) fL MCH 30.9 (27.0-32.0) pg MCHC 33.7 (31.0-37.0) g/dL RDW Std Deviation 42.7 (28.0-62.0) fl RDW Coeff of Ian 13 (11.0-15.0) % Plt Count 190 (150-400) K/uL MPV 10.80 (7.40-12.00) fL Neut % (Auto) 71.6 (48.0-80.0) % Lymph % (Auto) 15.0 L (16.0-40.0) % Hubbard % (Auto) 12.3 (0.0-15.0) % Eos % (Auto) 0.9 (0.0-7.0) % Baso % (Auto) 0.2 (0.0-1.5) % Neut # (Auto) 4.1 (1.4-5.7) K/uL Lymph # (Auto) 0.9 (0.6-2.4) K/uL Hubbard # (Auto) 0.7 (0.0-0.8) K/uL Eos # (Auto) 0.1 (0.0-0.7) K/uL Baso # (Auto) 0.0 (0.0-0.1) K/uL Nucleated RBC % 0.0 /100WBC Nucleated RBCs # 0 K/uL Sodium 140 (136-145) mmol/L Potassium 4.1 (3.5-5.1) mmol/L Chloride 103 (98-107) mmol/L Carbon Dioxide 28.0 (21.0-32.0) mmol/L BUN 17 (7.0-18.0) mg/dL Creatinine 1.3 H (0.6-1.0) mg/dL Est Cr Clr Drug Dosing 44.16 mL/min Estimated GFR (MDRD) 42.1 ml/min Glucose 106 (74-106) mg/dL Hemoglobin A1c 5.8 (4.5 - 6.2) % Calcium 8.5 (8.5-10.1) mg/dL Total Bilirubin 0.3 (0.2-1.0) mg/dL AST 14 L (15-37) IU/L ALT 24 (14-63) IU/L Alkaline Phosphatase 79 (46-116) U/L Troponin I < 0.050 (0.000-0.056) ng/mL Total Protein 7.3 (6.4-8.2) g/dL Albumin 3.7 (3.4-5.0) g/dL Globulin 3.6 (2.6-4.0) g/dL Albumin/Globulin Ratio 1.0 (0.9-1.6) Triglycerides (0-200) mg/dL Cholesterol (50-200) mg/dL LDL Cholesterol, Calc (60-180) mg/dL VLDL Cholesterol (5-55) mg/dL HDL Cholesterol (40-60) mg/dL Cholesterol/HDL Ratio (3.3-6.0) TSH, Ultra Sensitive (0.36-3.74) uIU/mL SARS-CoV-2 RNA (JAJA) (NEGATIVE) 12/13/20 12/13/20 12/13/20 Range/Units 08:32 09:41 09:41 WBC (4.0-11.0) K/uL RBC (4.30-5.90) M/uL Hgb (12.0-16.0) g/dL Hct (36.0-46.0) % MCV (80.0-98.0) fL MCH (27.0-32.0) pg MCHC (31.0-37.0) g/dL RDW Std Deviation (28.0-62.0) fl RDW Coeff of Ian (11.0-15.0) % Plt Count (150-400) K/uL MPV (7.40-12.00) fL Neut % (Auto) (48.0-80.0) % Lymph % (Auto) (16.0-40.0) % Hubbard % (Auto) (0.0-15.0) % Eos % (Auto) (0.0-7.0) % Baso % (Auto) (0.0-1.5) % Neut # (Auto) (1.4-5.7) K/uL Lymph # (Auto) (0.6-2.4) K/uL Hubbard # (Auto) (0.0-0.8) K/uL Eos # (Auto) (0.0-0.7) K/uL Baso # (Auto) (0.0-0.1) K/uL Nucleated RBC % /100WBC Nucleated RBCs # K/uL Sodium (136-145) mmol/L Potassium (3.5-5.1) mmol/L Chloride (98-107) mmol/L Carbon Dioxide (21.0-32.0) mmol/L BUN (7.0-18.0) mg/dL Creatinine (0.6-1.0) mg/dL Est Cr Clr Drug Dosing mL/min Estimated GFR (MDRD) ml/min Glucose (74-106) mg/dL Hemoglobin A1c (4.5 - 6.2) % Calcium (8.5-10.1) mg/dL Total Bilirubin (0.2-1.0) mg/dL AST (15-37) IU/L ALT (14-63) IU/L Alkaline Phosphatase (46-116) U/L Troponin I < 0.050 (0.000-0.056) ng/mL Total Protein (6.4-8.2) g/dL Albumin (3.4-5.0) g/dL Globulin (2.6-4.0) g/dL Albumin/Globulin Ratio (0.9-1.6) Triglycerides 58 (0-200) mg/dL Cholesterol 119 (50-200) mg/dL LDL Cholesterol, Calc 51 L (60-180) mg/dL VLDL Cholesterol 11 (5-55) mg/dL HDL Cholesterol 56 (40-60) mg/dL Cholesterol/HDL Ratio 2.1 L (3.3-6.0) TSH, Ultra Sensitive 1.12 (0.36-3.74) uIU/mL SARS-CoV-2 RNA (JAJA) NEGATIVE (NEGATIVE) 12/13/20 Range/Units 12:41 WBC (4.0-11.0) K/uL RBC (4.30-5.90) M/uL Hgb (12.0-16.0) g/dL Hct (36.0-46.0) % MCV (80.0-98.0) fL MCH (27.0-32.0) pg MCHC (31.0-37.0) g/dL RDW Std Deviation (28.0-62.0) fl RDW Coeff of Ian (11.0-15.0) % Plt Count (150-400) K/uL MPV (7.40-12.00) fL Neut % (Auto) (48.0-80.0) % Lymph % (Auto) (16.0-40.0) % Hubbard % (Auto) (0.0-15.0) % Eos % (Auto) (0.0-7.0) % Baso % (Auto) (0.0-1.5) % Neut # (Auto) (1.4-5.7) K/uL Lymph # (Auto) (0.6-2.4) K/uL Hubbard # (Auto) (0.0-0.8) K/uL Eos # (Auto) (0.0-0.7) K/uL Baso # (Auto) (0.0-0.1) K/uL Nucleated RBC % /100WBC Nucleated RBCs # K/uL Sodium (136-145) mmol/L Potassium (3.5-5.1) mmol/L Chloride (98-107) mmol/L Carbon Dioxide (21.0-32.0) mmol/L BUN (7.0-18.0) mg/dL Creatinine (0.6-1.0) mg/dL Est Cr Clr Drug Dosing mL/min Estimated GFR (MDRD) ml/min Glucose (74-106) mg/dL Hemoglobin A1c (4.5 - 6.2) % Calcium (8.5-10.1) mg/dL Total Bilirubin (0.2-1.0) mg/dL AST (15-37) IU/L ALT (14-63) IU/L Alkaline Phosphatase (46-116) U/L Troponin I < 0.050 (0.000-0.056) ng/mL Total Protein (6.4-8.2) g/dL Albumin (3.4-5.0) g/dL Globulin (2.6-4.0) g/dL Albumin/Globulin Ratio (0.9-1.6) Triglycerides (0-200) mg/dL Cholesterol (50-200) mg/dL LDL Cholesterol, Calc (60-180) mg/dL VLDL Cholesterol (5-55) mg/dL HDL Cholesterol (40-60) mg/dL Cholesterol/HDL Ratio (3.3-6.0) TSH, Ultra Sensitive (0.36-3.74) uIU/mL SARS-CoV-2 RNA (JAJA) (NEGATIVE) Result Diagrams: 12/13/20 06:35 12/13/20 06:35 Sepsis Event Note - Focused Exam Vital Signs: Vital Signs Temp Pulse Resp BP BP Pulse Ox 12/13/20 12:17 37.7 C 102 H 18 128/84 95 12/13/20 11:12 94 18 125/74 98 12/13/20 10:19 36.7 C 100 18 120/70 98 12/13/20 09:48 91 18 110/57 L 97 12/13/20 08:49 90 18 124/74 98 12/13/20 08:20 92 18 113/64 98 12/13/20 07:55 88 18 118/73 98 12/13/20 07:23 36.8 C 94 18 111/65 98 12/13/20 07:00 143/96 H 12/13/20 06:48 36.1 C 101 H 20 131/71 99 Orders Last 24hrs: Active Orders 24 hr Category Date Time Status Patient Status [ADT] Routine ADT 12/13/20 10:49 Active Antiembolic Devices [RC] PER UNIT ROUTINE Care 12/13/20 12:01 Active Intake and Output [RC] QSHIFT Care 12/13/20 12:00 Active Oxygen Therapy [RC] PRN Care 12/13/20 12:00 Active Telemetry Monitoring [Cardiac Monitoring] [RC] Q8H Care 12/13/20 11:39 Active Up With Assistance [RC] ASDIRECTED Care 12/13/20 12:00 Active VTE/DVT Education [RC] PER UNIT ROUTINE Care 12/13/20 12:00 Active Vital Signs [RC] Q4H Care 12/13/20 12:00 Active Regular Diet [DIET] Diet 12/13/20 Lunch Active Echo Comp wo Cont [US] Urgent Exams 12/13/20 12:06 Taken TROPONIN I [CHEM] Q3H Lab 12/13/20 15:30 Ordered Acetaminophen [Tylenol] Med 12/13/20 12:00 Active 650 mg RECTAL Q4H PRN Ondansetron [Zofran] Med 12/13/20 12:00 Active 4 mg IVPUSH Q4H PRN Patient's Own Medication [Ptom] Med 12/13/20 14:12 Active 1 each EYEBOTH BID PRN Sodium Chloride 0.9% [Saline Flush] Med 12/13/20 12:00 Active 2.5 ml FLUSH ASDIRECTED PRN Sucralfate [Carafate] Med 12/13/20 12:10 Active 1 gm PO QIDACANDBED Saline Lock Insert [OM.PC] Routine Oth 12/13/20 12:00 Ordered Sequential Compression Device [OM.PC] Per Unit Routine Oth 12/13/20 12:00 Ordered Resuscitation Status Routine Resus Stat 12/13/20 12:00 Ordered Medication Orders Acetaminophen (Acetaminophen 650 Mg Supp) 650 mg RECTAL Q4H PRN PRN Reason: Pain (mild 1-3) Ondansetron HCl (Ondansetron 4 Mg/2 Ml Sdv) 4 mg IVPUSH Q4H PRN PRN Reason: Nausea Cyclosporine [ (Restasis] 1 Each) 1 each EYEBOTH BID PRN PRN Reason: Dry Eyes Sodium Chloride (Sodium Chloride 0.9% 2.5 Ml Syringe) 2.5 ml FLUSH ASDIRECTED PRN PRN Reason: Keep Vein Open Sucralfate (Sucralfate Suspension 1 Gm/10 Ml Cup) 1 gm PO QIDACANDBED [facility] Last Admin: 12/13/20 12:31 Dose: 1 gm Documented by: [email or web address]
[2020-12-13] MEDS: Sucralfate Suspension 1 GM/10 ML Cup PO SCH ×3 (12:31→21:02)
[2020-12-13 12:46] LABS: HEMOGLOBIN A1C 5.8 %
[2020-12-13] MEDS ORDERED: Cyclosporine [Restasis] 1 EACH EYEBOTH PRN (14:12)
[2020-12-13] MEDS: Acetaminophen 650 MG Supp RECTAL PRN ×2 (16:48→21:07)
[2020-12-14] MEDS: Sucralfate Suspension 1 GM/10 ML Cup PO SCH ×3 (06:18→11:06)
[2020-12-14] MEDS: Acetaminophen 650 MG Supp RECTAL PRN (06:18)
[2020-12-14] MEDS ORDERED: Pantoprazole 40 MG in Sodium Chloride 0.9% 10 ML IV SCH (12:00)
--- NOTE | 2020-12-14 16:25 | PCM.DCSUM1 ---
<Kateryna Rivas - Last Filed: 12/14/20 16:19> Discharge Summary - Hospital Course Free Text/Narrative:: The patient is a 60-year-old female with a significant past medical history of mitral valve prolapse and Sjogren's syndrome who was admitted due to atypical chest pain. While in hospital she had 4 troponin levels read with each being negative. She was placed on telemetry with the last reading being in sinus rhythm with no ectopy and the heart rate being between 80-100. The chest pain is GI in nature, with previous episodes happening in the patient's life related to acid reflux. While in hospital the patient received sucralfate 1 g p.o. with meals and at bedtime and was placed on Protonix IV 40 mg once a day. This treatment helped control her chest pain and she is currently stable enough to go home. On discharge the patient will receive sucralfate 1 g liquid to be taken with meals and at bedtime, and she has been encouraged to continue to take her home omeprazole dose. Patient was also advised to eat meals upright, and to stay in that position for at least 45 minutes before lying supine. The patient is to follow-up with her PCP Dr. Reynoso to discuss medication review and a possible EGD evaluation of her GI tract. - Discharge Data Discharge Date: 12/14/20 Discharge Disposition: Home, Self-Care 01 Condition: Stable - Referral to Home Health Primary Care Physician: PCP None - Patient Instructions Diet: Regular Diet as Tolerated Driving: May Drive Today Showering/Bathing: May Shower Notify Provider of: Fever, Increased Pain, Swelling and Redness, Drainage, Nausea and/or Vomiting - Discharge Plan *PRESCRIPTION DRUG MONITORING PROGRAM REVIEWED*: No *COPY OF PRESCRIPTION DRUG MONITORING REPORT IN PATIENT KATHE: No Prescriptions/Med Rec: Sucralfate [Carafate] 1 gm PO QIDACANDBED #30 cup Home Medications: Home Meds cycloSPORINE [Restasis] 1 drop EYEBOTH ASDIRECTED PRN 02/23/16 [History] Omeprazole 20 mg PO DAILY 06/04/20 [History] Sucralfate [Carafate] 1 gm PO QIDACANDBED #30 cup 12/14/20 [Rx] Oxygen Therapy Mode: Room Air Patient Handouts: Upper Endoscopy, Adult, Sucralfate oral suspension Forms: ED Department Discharge Referrals: Angeles Ramirez NP [Ordering Only Provider] - 12/21/20 12:30 pm - Discharge Summary/Plan Comment DC Time >30 min.: Yes Total # of Minutes for Discharge Time: 35 mins - Review of Systems General: Denies: Fever, Fatigue, Appetite Pulmonary: Reports: Cough. Denies: Shortness of Breath, Pleuritic Chest Pain, Hemoptysis Cardiovascular: Denies: Chest Pain, Palpitations, Orthopnea Gastrointestinal: Denies: Abdominal Pain, Constipation, Decreased Appetite, Diarrhea - Patient Data Vitals - Most Recent: Last Vital Signs Temp 98.0 F 12/14/20 11:59 Pulse 88 12/14/20 11:59 Resp 20 12/14/20 11:59 BP 124/79 12/14/20 11:59 Pulse Ox 95 12/14/20 11:59 Weight - Most Recent: 86.273 kg I&O - Last 24 hours: Intake & Output 12/14/20 12/14/20 12/14/20 06:59 14:59 22:59 Intake Total 420 800 Output Total 620 Balance -200 800 Lab Results - Last 24 hrs: Laboratory Results - last 24 hr 12/13/20 Range/Units 15:35 Troponin I < 0.050 (0.000-0.056) ng/mL Med Orders - Current: Current Medications Discontinued Medications Acetaminophen (Acetaminophen 325 Mg Tab) 650 mg PO NOW ONE Stop: 12/13/20 11:13 Last Admin: 12/13/20 11:15 Dose: 650 mg Documented by: Acetaminophen (Acetaminophen 325 Mg Tab) Confirm Administered Dose 650 mg .ROUTE .STK-MED ONE Stop: 12/13/20 11:15 Last Admin: 12/13/20 11:18 Dose: Not Given Documented by: Acetaminophen (Acetaminophen 650 Mg Supp) 650 mg RECTAL Q4H PRN PRN Reason: Pain (mild 1-3) Last Admin: 12/14/20 06:18 Dose: 650 mg Documented by: Aspirin (Aspirin 81 Mg Tab.Chew) 162 mg PO NOW STA Stop: 12/13/20 06:52 Last Admin: 12/13/20 07:00 Dose: 162 mg Documented by: Al Hydroxide/Mg Hydroxide 15 (ml/ Lidocaine HCl 5 ml) 0 ml PO ONETIME ONE Stop: 12/13/20 06:52 Last Admin: 12/13/20 07:00 Dose: 20 each Documented by: Pantoprazole Sodium 40 mg/ (Sodium Chloride) 10 mls @ 300 mls/hr IV NOW ONE Stop: 12/13/20 12:11 Last Admin: 12/13/20 12:32 Dose: 300 mls/hr Documented by: Pantoprazole Sodium 40 mg/ (Sodium Chloride) 10 mls @ 300 mls/hr IV Q24H [facility] Last Admin: 12/14/20 11:06 Dose: 300 mls/hr Documented by: Nitroglycerin (Nitroglycerin 0.4 Mg Tab.Sl) 0.4 mg SL ONETIME ONE Stop: 12/13/20 06:52 Last Admin: 12/13/20 07:00 Dose: 0.4 mg Documented by: Ondansetron HCl (Ondansetron 4 Mg/2 Ml Sdv) 4 mg IVPUSH Q4H PRN PRN Reason: Nausea Cyclosporine [ (Restasis] 1 Each) 1 each EYEBOTH BID PRN PRN Reason: Dry Eyes Sodium Chloride (Sodium Chloride 0.9% 2.5 Ml Syringe) 2.5 ml FLUSH ASDIRECTED PRN PRN Reason: Keep Vein Open Sucralfate (Sucralfate Suspension 1 Gm/10 Ml Cup) 1 gm PO QIDACANDBED [facility] Last Admin: 12/14/20 11:06 Dose: 1 gm Documented by: - Exam General: Reports: Alert, Oriented, Cooperative Lungs: Reports: Clear to Auscultation, Normal Respiratory Effort Cardiovascular: Reports: Regular Rate, Regular Rhythm, No Murmurs GI/Abdominal Exam: Normal Bowel Sounds, Soft, Non-Tender <Moiz,Hooria - Last Filed: 12/16/20 12:13> Discharge Summary - Hospital Course Free Text/Narrative:: I have seen and evaluated the patient and agree with the residents note unless specified in my note - Referral to Home Health Primary Care Physician: PCP None - Discharge Diagnosis/Problem(s) (1) GERD (gastroesophageal reflux disease) SNOMED Code(s): 627934751 ICD Code: K21.9 - GASTRO-ESOPHAGEAL REFLUX DISEASE WITHOUT ESOPHAGITIS Status: Acute (2) Atypical chest pain SNOMED Code(s): 275767507 ICD Code: R07.89 - OTHER CHEST PAIN Status: Acute (3) Lung density on x-ray SNOMED Code(s): 456879915 ICD Code: J98.4 - OTHER DISORDERS OF LUNG Status: Acute (4) Mitral valve prolapse SNOMED Code(s): 858509147 ICD Code: I34.1 - NONRHEUMATIC MITRAL (VALVE) PROLAPSE Status: Chronic (5) Sjogren's disease SNOMED Code(s): 99089849 ICD Code: M35.00 - SICCA SYNDROME, UNSPECIFIED Status: Chronic - Patient Data Vitals - Most Recent: Last Vital Signs Temp 36.7 C 12/14/20 11:59 Pulse 88 12/14/20 11:59 Resp 20 12/14/20 11:59 BP 124/79 12/14/20 11:59 Pulse Ox 95 12/14/20 11:59 Med Orders - Current: Current Medications Discontinued Medications Acetaminophen (Acetaminophen 325 Mg Tab) 650 mg PO NOW ONE Stop: 12/13/20 11:13 Last Admin: 12/13/20 11:15 Dose: 650 mg Documented by: Acetaminophen (Acetaminophen 325 Mg Tab) Confirm Administered Dose 650 mg .ROUTE .STK-MED ONE Stop: 12/13/20 11:15 Last Admin: 12/13/20 11:18 Dose: Not Given Documented by: Acetaminophen (Acetaminophen 650 Mg Supp) 650 mg RECTAL Q4H PRN PRN Reason: Pain (mild 1-3) Last Admin: 12/14/20 06:18 Dose: 650 mg Documented by: Aspirin (Aspirin 81 Mg Tab.Chew) 162 mg PO NOW STA Stop: 12/13/20 06:52 Last Admin: 12/13/20 07:00 Dose: 162 mg Documented by: Al Hydroxide/Mg Hydroxide 15 (ml/ Lidocaine HCl 5 ml) 0 ml PO ONETIME ONE Stop: 12/13/20 06:52 Last Admin: 12/13/20 07:00 Dose: 20 each Documented by: Pantoprazole Sodium 40 mg/ (Sodium Chloride) 10 mls @ 300 mls/hr IV NOW ONE Stop: 12/13/20 12:11 Last Admin: 12/13/20 12:32 Dose: 300 mls/hr Documented by: Pantoprazole Sodium 40 mg/ (Sodium Chloride) 10 mls @ 300 mls/hr IV Q24H [facility] Last Admin: 12/14/20 11:06 Dose: 300 mls/hr Documented by: Nitroglycerin (Nitroglycerin 0.4 Mg Tab.Sl) 0.4 mg SL ONETIME ONE Stop: 12/13/20 06:52 Last Admin: 12/13/20 07:00 Dose: 0.4 mg Documented by: Ondansetron HCl (Ondansetron 4 Mg/2 Ml Sdv) 4 mg IVPUSH Q4H PRN PRN Reason: Nausea Cyclosporine [ (Restasis] 1 Each) 1 each EYEBOTH BID PRN PRN Reason: Dry Eyes Sodium Chloride (Sodium Chloride 0.9% 2.5 Ml Syringe) 2.5 ml FLUSH ASDIRECTED PRN PRN Reason: Keep Vein Open Sucralfate (Sucralfate Suspension 1 Gm/10 Ml Cup) 1 gm PO QIDACANDBED [facility] Last Admin: 12/14/20 11:06 Dose: 1 gm Documented by:
--- NOTE | 2020-12-16 14:22 | ECHO ---
EXAM DATE: 12/13/20 PATIENT'S AGE: 60 The ECHO report has been scanned into [employer] and can be seen in this patient's EMR (Electronic Medical Record) under the REPORTS section. The report has also been scanned into PACS. MINH
== END 2020-12-14 13:40 | disposition home or self-care (01) ==
LOC: MW.ED 06:17 → MW.MS 10:49
PROVIDERS: ADMIT Student in an Organized Health Care Education/Training Program; ATTEND Student in an Organized Health Care Education/Training Program
DX: R07.89 Other chest pain (principal); E66.9 Obesity, unspecified; K21.9 Gastro-esophageal reflux disease without esophagitis; J98.4 Other disorders of lung; I34.1 Nonrheumatic mitral (valve) prolapse; M35.00 Sjogren syndrome, unspecified; Z79.899 Other long term (current) drug therapy; Z20.822 Contact with and (suspected) exposure to COVID-19
CPT/HCPCS: 36415; 71045; 80053; 80061; 83036; 84443; 84484; 85025; 87635; 93005; 93306; 96374; 96376; 99285; A9270; C9113; G0378; U0002

== ENCOUNTER 2021-01-03 11:30 | Day surgery (SDC) | payer OTHER ==
[~2021-01-03 11:30] MED LIST: Lactated Ringers 1,000 ML IV SCH; Sodium Chloride 0.9% 10 ML SDV IV PRN; Sodium Chloride 0.9% 10 ML Syringe FLUSH PRN; Sodium Chloride 0.9% 2.5 ML Syringe FLUSH PRN
--- NOTE | 2021-01-03 11:40 | PCM.PREANE ---
Preanesthetic Assessment - Anesthesia/Transfusion/Family Hx Anesthesia History: Prior Anesthesia Without Reaction Transfusion History: No Prior Transfusion(s) - Review of Systems General: No Symptoms Pulmonary: No Symptoms Cardiovascular: No Symptoms Gastrointestinal: No Symptoms, Difficulty Swallowing, Other (GERD) Neurological: No Symptoms Other: Reports: None - Physical Assessment NPO Status Date: 01/03/21 NPO Status Time: 00:00 Height: 5 ft 6 in Weight: 189 lb ASA Class: 3 Mental Status: Alert & Oriented x3 Airway Class: Mallampati = 2 Dentition: Reports: Normal Dentition Thyro-Mental Finger Breadths: 3 Mouth Opening Finger Breadths: 3 ROM/Head Extension: Full Lungs: Clear to Auscultation, Normal Respiratory Effort Cardiovascular: Regular Rate, Regular Rhythm - Allergies Allergies/Adverse Reactions: Allergies Allergy/AdvReac Type Severity Reaction Status Date / Time No Known Allergies Allergy Verified 12/29/20 08:15 - Acknowledgements Anesthesia Type Planned: General Anesthesia Pt an Appropriate Candidate for the Planned Anesthesia: Yes Alternatives and Risks of Anesthesia Discussed w Pt/Guardian: Yes Pt/Guardian Understands and Agrees with Anesthesia Plan: Yes PreAnesthesia Questionnaire Other HEENT History: wears glasses Cardiovascular History: Reports: Other (See Below) Other Cardiovascular History: pearl valve prolapse Respiratory History: Reports: None Gastrointestinal History: Reports: Hemorrhoids, PUD, Other (See Below) Other Gastrointestinal History: occasional heartburn Genitourinary History: Reports: UTI, Recurrent [employer] History: Reports: Musculoskeletal History: Reports: Osteoarthritis Other Musculoskeletal History: L bunion sx Neurological History: Reports: None Psychiatric History: Reports: None Endocrine/Metabolic History: Reports: Obesity/BMI 30+ Other Endocrine/Metabolic History: sjogren syndrome Hematologic History: Reports: None Immunologic History: Reports: None Oncologic (Cancer) History: Reports: None Dermatologic History: Reports: None - Infectious Disease History Infectious Disease History: Reports: Chicken Pox - Past Surgical History Other HEENT Surgeries/Procedures: blocked gland from neck about 15yrs ago - SUBSTANCE USE Tobacco Use Status *Q: Never Tobacco User - HOME MEDS Home Medications: Home Meds cycloSPORINE [Restasis] 1 drop EYEBOTH ASDIRECTED PRN 02/23/16 [History] Omeprazole 20 mg PO BID 06/04/20 [History] Calcium Carbonate [Calcium] 1 tab PO DAILY 12/29/20 [History] Cevimeline HCl 30 mg PO BID 12/29/20 [History] Cholecalciferol (Vitamin D3) [Vitamin D3] 1 tab.chew CHEW BID 12/29/20 [History] Zinc Citrate [Zinc] 1 tab.chew CHEW BID 12/29/20 [History] estradioL [Oksana] 1 patch TRDERM ASDIRECTED 12/29/20 [History] - CURRENT (IN HOUSE) MEDS Current Meds: Current Medications Lactated Ringer's (Ringers, Lactated) 1,000 mls @ 125 mls/hr IV ASDIRECTED [facility] Sodium Chloride (Sodium Chloride 0.9% 10 Ml Syringe) 10 ml FLUSH ASDIRECTED PRN PRN Reason: Keep Vein Open Sodium Chloride (Sodium Chloride 0.9% 2.5 Ml Syringe) 2.5 ml FLUSH ASDIRECTED PRN PRN Reason: Keep Vein Open Sodium Chloride (Sodium Chloride 0.9% 10 Ml Syringe) 10 ml FLUSH ASDIRECTED PRN PRN Reason: Keep Vein Open Sodium Chloride (Sodium Chloride 0.9% 2.5 Ml Syringe) 2.5 ml FLUSH ASDIRECTED PRN PRN Reason: Keep Vein Open Sodium Chloride (Sodium Chloride 0.9% 10 Ml Sdv) 10 ml IV ASDIRECTED PRN PRN Reason: IV Use
[2021-01-03] MEDS ORDERED: Lidocaine 2% 5 ML SDV ONE (12:09)
[2021-01-03] MEDS ORDERED: Propofol 200 MG/20 ML SDV ONE (12:09)
[2021-01-03] MEDS ORDERED: fentaNYL 100 MCG/2 ML SDV ONE (12:10)
--- NOTE | 2021-01-03 12:49 | PCM.OPNOTE ---
- General Post-Op/Procedure Note Date of Surgery/Procedure: 01/03/21 Operative Procedure(s): Diagnostic EGD Findings: Normal appearing EGD. Possible small hiatal hernia Pre Op Diagnosis: Atypical chest pain Post-Op Diagnosis: same Anesthesia Technique: MAC Primary Surgeon: Linette Hollingsworth Condition: Good
--- NOTE | 2021-01-03 12:55 | PCM48HPAN ---
Post Anesthesia Note - EVALUATION WITHIN 48HRS OF ANESTHETIC Vital Signs in Normal Range: Yes Patient Participated in Evaluation: Yes Respiratory Function Stable: Yes Airway Patent: Yes Cardiovascular Function Stable: Yes Hydration Status Stable: Yes Pain Control Satisfactory: Yes Nausea and Vomiting Control Satisfactory: Yes Mental Status Recovered: Yes Vital Signs: Last Vital Signs Temp 98.2 F 01/03/21 11:43 Pulse 80 01/03/21 11:43 Resp 16 01/03/21 11:43 BP 129/72 01/03/21 11:43 Pulse Ox 97 01/03/21 11:43
--- NOTE | 2021-01-03 12:55 | PCM.POSTAN ---
POST ANESTHESIA ASSESSMENT - MENTAL STATUS Mental Status: Alert, Oriented - VITAL SIGNS Vital Signs: Last Vital Signs Temp 98.2 F 01/03/21 11:43 Pulse 80 01/03/21 11:43 Resp 16 01/03/21 11:43 BP 129/72 01/03/21 11:43 Pulse Ox 97 01/03/21 11:43 - RESPIRATORY Respiratory Status: Respiratory Rate WNL, Airway Patent, O2 Saturation Stable - CARDIOVASCULAR CV Status: Pulse Rate WNL, Blood Pressure Stable - GASTROINTESTINAL GI Status: No Symptoms - POST OP HYDRATION Hydration Status: Adequate & Stable
--- NOTE | 2021-01-03 15:53 | OR ---
SURGEON: LINETTE HOLLINGSWORTH MD DATE OF PROCEDURE: 01/03/2021 PREOPERATIVE DIAGNOSIS: Atypical chest pain, gastroesophageal reflux disease. POSTOPERATIVE DIAGNOSIS: Atypical chest pain, gastroesophageal reflux disease. PROCEDURE PERFORMED: Diagnostic esophagogastroduodenoscopy with biopsy. PRIMARY SURGEON: Linette Hollingsworth MD ANESTHESIA: MAC. INSTRUMENT USED: Olympus endoscope. EXTENT OF THE EXAM: To the second portion of the duodenum. PREPARATION: Good. LIMITATIONS: None. INDICATIONS FOR EXAMINATION: The patient is a 60-year-old female who was recently admitted to the hospital with atypical chest pain symptoms. Her cardiac workup was negative. She came to my office for workup for possible reflux. The patient and I discussed the need for an EGD. I explained the procedure, expected perioperative course, and the risks. She verbalized understanding and wishes to proceed. PROCEDURE IN DETAIL: The patient was brought in to the endoscopy suite and placed in a beach chair position. A time-out was completed verifying the patient's name, age, date of , allergies, and procedure to be performed. A bite block was placed in the patient's mouth. Monitored anesthesia care was induced and continuous oxygen was provided via face mask throughout the procedure. After adequate sedation was achieved, a well-lubricated endoscope was placed in the patient's mouth and advanced under direct visualization to the second portion of the duodenum. This appeared normal and a photograph was taken. The scope was then fully withdrawn while examining the color, texture, anatomy, and integrity of the mucosa of the upper GI tract. The duodenum appeared normal. The scope was brought into the stomach and a photograph was taken of the pylorus and GE junction. These grossly appeared normal. Biopsies were taken of the gastric antrum, body, and fundus and sent for histologic review and H pylori testing. I found no evidence of gross inflammation or ulceration. The scope was brought into the distal esophagus and a photograph was taken of the Z-line. The patient did appear to have a small amount of gastric mucosa within the chest. Narrow band imaging was used to examine the distal esophageal mucosa. There was no evidence of irregularities. A biopsy was taken 1 cm above the Z-line and sent to Pathology for histologic review. The remainder of the esophagus was normal. The scope was removed and the procedure terminated. The patient tolerated the procedure well and was transferred to the PACU in stable condition. ENDOSCOPIC DIAGNOSIS: Atypical chest pain, gastroesophageal reflux disease. RECOMMENDATIONS: Continue the PPI that the patient is currently on, and we will follow up in clinic to discuss biopsies in one to two weeks. ARSENIO MANTILLA /[id number]
== END 2021-01-03 13:14 | disposition home or self-care (01) ==
LOC: MW.SDS 11:30
PROVIDERS: ATTEND Surgery
DX: K21.9 Gastro-esophageal reflux disease without esophagitis (principal); E66.9 Obesity, unspecified; N39.0 Urinary tract infection, site not specified; Z79.899 Other long term (current) drug therapy; Z90.49 Acquired absence of other specified parts of digestive tract; Z98.890 Other specified postprocedural states; Z68.30 Body mass index [BMI] 30.0-30.9, adult
CPT/HCPCS: 43239; 88305; J2704; J3010; J7120; 00731

== ENCOUNTER 2021-02-09 08:01 | Emergency (ER) | payer OTHER ==
[2021-02-09] MEDS ORDERED: Ketorolac 30 MG/ML SDV IVPUSH ONE (08:56)
[2021-02-09] MEDS ORDERED: Ondansetron 4 MG/2 ML SDV IVPUSH ONE (08:56)
--- NOTE | 2021-02-09 08:56 | EDM.PDOC ---
ED HPI GENERAL MEDICAL PROBLEM - General Chief Complaint: Abdominal Pain Stated Complaint: VOMMITING AND LEFT SIDE PAIN Time Seen by Provider: 02/09/21 08:03 Source of Information: Reports: Patient History Limitations: Reports: No Limitations - History of Present Illness INITIAL COMMENTS - FREE TEXT/NARRATIVE: Patient is a 60-year-old female history of multiple abdominal surgeries presents today for left-sided abdominal pain. The pain started a few hours ago while she was getting ready for work. The pain is sharp in nature does not radiate. She felt nauseous has had some vomiting. Denies any diarrhea or urinary complaints. Denies any injuries to the area denies any any new foods and no one else in the household having similar symptoms. Left Abdomen Pain Score (Numeric/FACES): 8 - Related Data Allergies Allergy/AdvReac Type Severity Reaction Status Date / Time No Known Allergies Allergy Verified 02/09/21 09:07 Home Meds: Home Meds cycloSPORINE [Restasis] 1 drop EYEBOTH ASDIRECTED PRN 02/23/16 [History] Omeprazole 20 mg PO BID 06/04/20 [History] Calcium Carbonate [Calcium] 1 tab PO DAILY 12/29/20 [History] Cevimeline HCl 30 mg PO BID 12/29/20 [History] Cholecalciferol (Vitamin D3) [Vitamin D3] 1 tab.chew CHEW BID 12/29/20 [History] Zinc Citrate [Zinc] 1 tab.chew CHEW BID 12/29/20 [History] estradioL [Oksana] 1 patch TRDERM ASDIRECTED 12/29/20 [History] Past Medical History HEENT History: Reports: Other (See Below) Other HEENT History: wears glasses Cardiovascular History: Reports: Other (See Below) Other Cardiovascular History: pearl valve prolapse Respiratory History: Reports: None Gastrointestinal History: Reports: GERD, Hemorrhoids, PUD Genitourinary History: Reports: None, UTI, Recurrent [employer] History: Reports: Musculoskeletal History: Reports: Osteoarthritis Other Musculoskeletal History: L bunion sx Neurological History: Reports: None Psychiatric History: Reports: None Endocrine/Metabolic History: Reports: Obesity/BMI 30+ Other Endocrine/Metabolic History: sjogren syndrome Hematologic History: Reports: None Immunologic History: Reports: None Oncologic (Cancer) History: Reports: None Dermatologic History: Reports: None - Infectious Disease History Infectious Disease History: Reports: Chicken Pox - Past Surgical History Other HEENT Surgeries/Procedures: excision of gland from neck about 15yrs ago Social & Family History - Family History Family Medical History: No Pertinent Family History - Caffeine Use Caffeine Use: Reports: Tea ED ROS GENERAL - Review of Systems Review Of Systems: See Below Constitutional: Reports: No Symptoms HEENT: Reports: No Symptoms Respiratory: Reports: No Symptoms Cardiovascular: Reports: No Symptoms Endocrine: Reports: No Symptoms GI/Abdominal: Reports: Abdominal Pain : Reports: No Symptoms Musculoskeletal: Reports: No Symptoms Skin: Reports: No Symptoms Neurological: Reports: No Symptoms Psychiatric: Reports: No Symptoms Hematologic/Lymphatic: Reports: No Symptoms Immunologic: Reports: No Symptoms ED EXAM, GI/ABD - Physical Exam Exam: See Below Exam Limited By: No Limitations General Appearance: Alert, WD/WN, No Apparent Distress Eyes: Bilateral: EOMI Ears: Normal External Exam Throat/Mouth: Normal Inspection Head: Atraumatic Neck: Normal Inspection, Supple, Non-Tender Respiratory/Chest: No Respiratory Distress, Lungs Clear, Normal Breath Sounds Cardiovascular: Normal Peripheral Pulses, Regular Rate, Rhythm GI/Abdominal Exam: Normal Bowel Sounds, Soft, Non-Tender Back Exam: No: CVA Tenderness (L), CVA Tenderness (R) Extremities: Normal Inspection Neurological: Alert, Oriented, Normal Cognition, Normal Gait Course - Vital Signs Last Recorded V/S: Last Vital Signs Temp 98 F 02/09/21 08:58 Pulse 75 02/09/21 08:58 Resp 18 02/09/21 08:58 BP 136/77 02/09/21 08:58 Pulse Ox 95 02/09/21 08:58 - Orders/Labs/Meds Labs: Laboratory Tests 02/09/21 02/09/21 Range/Units 08:50 08:50 WBC 9.56 (4.0-11.0) K/uL RBC 4.78 (4.30-5.90) M/uL Hgb 14.9 (12.0-16.0) g/dL Hct 43.8 (36.0-46.0) % MCV 91.6 (80.0-98.0) fL MCH 31.2 (27.0-32.0) pg MCHC 34.0 (31.0-37.0) g/dL RDW Std Deviation 43.9 (28.0-62.0) fl RDW Coeff of Ian 13 (11.0-15.0) % Plt Count 222 (150-400) K/uL MPV 11.00 (7.40-12.00) fL Neut % (Auto) 80.8 H (48.0-80.0) % Lymph % (Auto) 13.7 L (16.0-40.0) % Phelps % (Auto) 4.1 (0.0-15.0) % Eos % (Auto) 1.3 (0.0-7.0) % Baso % (Auto) 0.1 (0.0-1.5) % Neut # (Auto) 7.7 H (1.4-5.7) K/uL Lymph # (Auto) 1.3 (0.6-2.4) K/uL Phelps # (Auto) 0.4 (0.0-0.8) K/uL Eos # (Auto) 0.1 (0.0-0.7) K/uL Baso # (Auto) 0.0 (0.0-0.1) K/uL Nucleated RBC % 0.0 /100WBC Nucleated RBCs # 0 K/uL Sodium 139 (136-145) mmol/L Potassium 4.6 (3.5-5.1) mmol/L Chloride 102 (98-107) mmol/L Carbon Dioxide 27.8 (21.0-32.0) mmol/L BUN 21 H (7.0-18.0) mg/dL Creatinine 1.1 H (0.6-1.0) mg/dL Est Cr Clr Drug Dosing 52.19 mL/min Estimated GFR (MDRD) 51.0 ml/min Glucose 136 H (74-106) mg/dL Calcium 8.8 (8.5-10.1) mg/dL Phosphorus 3.6 (2.6-4.7) mg/dL Magnesium 2.1 (1.8-2.4) mg/dL Total Bilirubin 0.5 (0.2-1.0) mg/dL AST 21 (15-37) IU/L ALT 29 (14-63) IU/L Alkaline Phosphatase 69 (46-116) U/L Total Protein 8.2 (6.4-8.2) g/dL Albumin 3.8 (3.4-5.0) g/dL Globulin 4.4 H (2.6-4.0) g/dL Albumin/Globulin Ratio 0.9 (0.9-1.6) Lipase 152 (73-393) U/L Meds: Medications Discontinued Medications Generic Name Dose Route Start Last Admin Trade Name Luciusq PRN Reason Stop Dose Admin Iopamidol 100 ml 02/09/21 10:33 02/09/21 10:33 Iopamidol 755 Mg/Ml 500 Ml Multipack Bottle IVPUSH 02/09/21 10:34 100 ml ONETIME STA Administration Ketorolac Tromethamine 30 mg 02/09/21 08:56 02/09/21 09:20 Ketorolac 30 Mg/Ml Sdv IVPUSH 02/09/21 08:57 30 mg ONETIME ONE Administration Ondansetron HCl 4 mg 02/09/21 08:56 02/09/21 09:20 Ondansetron 4 Mg/2 Ml Sdv IVPUSH 02/09/21 08:57 4 mg ONETIME ONE Administration - Re-Assessments/Exams Free Text/Narrative Re-Assessment/Exam: 02/09/21 11:[address] shows possible early infection: Patient will be sent home amoxici llin. Patient will follow with PMD. Patient tolerating p.o. and looks a lot better. Departure - Departure Time of Disposition: 11:43 Disposition: Home, Self-Care 01 Condition: Good Clinical Impression: Colitis - Discharge Information *PRESCRIPTION DRUG MONITORING PROGRAM REVIEWED*: Not Applicable *COPY OF PRESCRIPTION DRUG MONITORING REPORT IN PATIENT KATHE: Not Applicable Instructions: Diverticulitis, [id number] Referrals: Angeles Ramirez NP [Primary Care Provider] - Forms: ED Department Discharge Additional Instructions: You were seen today for abdominal pain. Your CAT scan shows a possible infection of your colon we have placed you antibiotics to help treat this. If you have any other concerning signs or symptoms please return to the ED otherwise follow-up with your primary care physician. We have attached [facility] care for yourself at home with things look for. The following information is given to patients seen in the emergency department who are being discharged to home. This information is to outline your options for follow-up care. We provide all patients seen in our emergency department with a follow-up referral. The need for follow-up, as well as the timing and circumstances, are variable depending upon the specifics of your emergency department visit. If you don't have a primary care physician on staff, we will provide you with a referral. We always advise you to contact your personal physician following an emergency department visit to inform them of the circumstance of the visit and for follow-up with them and/or the need for any referrals to a consulting specialist. The emergency department will also refer you to a specialist when appropriate. This referral assures that you have the opportunity for follow-up care with a specialist. All of these measure are taken in an effort to provide you with optimal care, which includes your follow-up. Under all circumstances we always encourage you to contact your private physician who remains a resource for coordinating your care. When calling for follow-up care, please make the office aware that this follow-up is from your recent emergency room visit. If for any reason you are refused follow-up, please contact the [facility] Emergency Department at and asked to speak to the emergency department charge nurse. Please follow up with your primary care physician. If you do not have a primary care physician, see below: [facility] [address] [place] [id number] [facility] [address] [place] [id number] Sepsis Event Note (ED) - Focused Exam Vital Signs: Vital Signs Temp Pulse Resp BP Pulse Ox 02/09/21 08:58 98 F 75 18 136/77 95 - Assessment/Plan Plan: Patient is a 60-year-old female who presents today for left-sided abdominal pain started earlier this morning. Patient has no pain on examination no CVA tenderness. Will obtain labs give antiemetics. Will look for any intra- abdominal pathology cause the patient pain with a CAT scan.
[2021-02-09 09:39] LABS: CARBON DIOXIDE,CO2 27.8 mmol/L (21.0-32.0); POTASSIUM,K 4.6 mmol/L (3.5-5.1)
[2021-02-09] MEDS ORDERED: Iopamidol 755 MG/ML 500 ML Multipack Bottle IVPUSH STA (10:33)
--- NOTE | 2021-02-09 11:35 | CT ---
Indication: Left-sided abdominal Pain Technique: Volumetric multidetector CT images of the abdomen and pelvis were obtained after the administration of intravenous contrast. 100 cc Isovue 370 low osmolar intravenous contrast Comparison: None available. Findings: There is minimal basilar atelectasis versus scar. The liver demonstrates mild hepatic steatosis and hepatomegaly with likely cystic changes too small to characterize. The portal vein is patent. The gallbladder is unremarkable without evidence of radiopaque calculus. There is no significant common biliary ductal dilatation or abrupt cut off. The spleen is normal in enhancement and size. There is mild thickening of the gastric antrum appreciated otherwise stomach is decompressed. The pancreas is normal in enhancement without significant atrophy. The adrenal glands are unremarkable. Demonstration of mild bilateral pelviectasis with questionable enhancement of the left renal pelvis urothelium otherwise there is no evidence of obstructive calculus or hydronephrosis. There is otherwise preserved corticomedullary differentiation. There is moderate stool seen throughout the colon with distal colonic diverticulosis. The distal colon is somewhat decompressed and low-grade inflammatory changes are difficult to exclude without evidence of overt pericolonic inflammation. The appendix is unremarkable. There is no significant mesenteric, retroperitoneal, or pelvic sidewall lymph nodes. The aorta is nonaneurysmal. There is no significant atherosclerotic disease appreciated. There is prior hysterectomy, otherwise the pelvic viscera are grossly within normal limits. There is no free fluid or free air. The anterior abdominal wall is intact without significant hernias. The lumbar vertebral body heights are grossly maintained with minimal anterolisthesis of L4 on L5. There is moderate facet arthrosis. Impression: Moderate stool seen throughout the colon with minimal distal colonic diverticulosis. However, the distal colon is somewhat decompressed and low-grade infectious or inflammatory changes are not excluded. Mild prominence of the left renal pelvis which demonstrates questionable urothelial enhancement which could represent minimal early infectious or inflammatory changes. No evidence of distal obstructing calculus. Otherwise, no definite acute abnormality is appreciated. Please note that all CT scans at this facility use dose modulation, iterative reconstruction, and/or weight-based dosing when appropriate to reduce radiation dose to as low as reasonably achievable. Dictated by Anton Lockhart MD @ 02/09/2021 11:34:17 AM (Electronically Signed)
== END 2021-02-09 11:58 | disposition home or self-care (01) ==
LOC: MW.ED 08:01
DX: K52.9 Noninfective gastroenteritis and colitis, unspecified (principal); E66.9 Obesity, unspecified; Z68.30 Body mass index [BMI] 30.0-30.9, adult
CPT/HCPCS: 36415; 74177; 80053; 83690; 83735; 84100; 85025; 96374; 96375; 99284; J1885; J2405; Q9967